=== PATIENT | male | born 1950 | race Caucasian/White ===

== ENCOUNTER → 2024-08-17 16:10 | Outpatient (REF) | payer MEDICARE, OTHER, SELFPAY | LOC: DHSLP 16:10 | PROVIDERS: ATTENDING PHYSICIAN Physician Assistant Medical; FAMILY PHYSICIAN Family Medicine | DX: G47.33 Obstructive sleep apnea (adult) (pediatric) (principal); R09.02 Hypoxemia | CPT/HCPCS: 95800 ==

== ENCOUNTER → 2024-10-09 13:50 | Outpatient (REF) | payer MEDICARE, OTHER, SELFPAY | LOC: RCS 13:50 | PROVIDERS: ATTENDING PHYSICIAN Physician Assistant Medical; FAMILY PHYSICIAN Family Medicine | DX: I48.0 Paroxysmal atrial fibrillation (principal); I49.3 Ventricular premature depolarization | CPT/HCPCS: 93306 ==